=== PATIENT | female | born 1955 | race African-American/Black ===

== ENCOUNTER 2018-09-11 01:05 | Inpatient (IN) | payer MEDICARE, MEDICAID ==
[~2018-09-11] VITALS: Ht 165.1 cm; Wt 100.2 kg
[2018-09-11] MEDS ORDERED: NITROGLYCERIN OINT 1GM/INCH UDPKT TD ONE (03:00)
[2018-09-11] MEDS ORDERED: ASPIRIN 81MG TABLET PO ONE (03:00)
[2018-09-11 04:09] LABS: BASOPHILS % 0.9 % (0.0-2.0); EOSINOPHILS % 2.2 % (0.0-5.0); HEMATOCRIT. 38.1 % (36.0-48.0); HEMOGLOBIN. 12.6 g/dL (12.0-16.0); LYMPHOCYTES % 29.1 % (20.0-50.0); MEAN CORPUSCULAR HEMOGLOBIN 26.3 pg (28.0-32.0); MEAN CORPUSCULAR VOLUME 79.6 fL (81.0-99.0); MEAN PLATELET VOLUME 10.8 fl (7.4-10.4); MONOCYTES % 7.4 % (2.0-8.0); NEUTROPHILS % 60.4 % (40.0-76.0); PLATELET 173 x1000/uL (130-400); RED BLOOD CELL COUNT 4.78 mill/uL (4.2-5.4); RED CELL DISTRIBUTION WIDTH 14.3 % (11.6-14.6)
[2018-09-11 04:24] LABS: CHLORIDE 105 mEq/L (98-107)
[2018-09-11] MEDS ORDERED: DIPHENHYDRAMINE 50MG/ML VIAL IV PRN (07:00)
[2018-09-11] MEDS ORDERED: IPRATROPIUM/ALBUTEROL 0.5-3(2.5)MG/3ML NEB INH PRN (07:00)
[2018-09-11] MEDS ORDERED: CLONIDINE 0.1MG TABLET PO PRN (07:00)
[2018-09-11] MEDS ORDERED: GUAIFENESIN 200MG/10ML SUGAR FREE UDC PO PRN (07:00)
[2018-09-11] MEDS ORDERED: NA PHOS,M-B/NA PHOS,DI-BA ENEMA 118ML PR PRN (07:00)
[2018-09-11] MEDS ORDERED: DOCUSATE SODIUM 100MG CAPSULE PO PRN (07:00)
[2018-09-11] MEDS ORDERED: MAGNESIUM/ALUMINUM HYDROXIDE/SIMETHICONE 30ML UDC PO PRN (07:00)
[2018-09-11] MEDS ORDERED: LORAZEPAM 2MG/ML CPJ IV PRN (07:00)
[2018-09-11] MEDS ORDERED: ACETAMINOPHEN 325MG TABLET PO PRN (07:00)
[2018-09-11] MEDS ORDERED: ONDANSETRON HCL 4MG/2ML INJ IV PRN (07:00)
[2018-09-11] MEDS ORDERED: PANTOPRAZOLE SODIUM 40 MG/VIAL IV SCH (09:00)
[2018-09-11] MEDS ORDERED: ASPIRIN 81MG EC TABLET PO SCH (09:00)
[2018-09-11] MEDS ORDERED: DEXTROSE 50% WATER 50ML SYRINGE IV PRN (12:00)
[2018-09-11] MEDS: INSULIN LISPRO (MEDIUM DOSE) 100 UNITS/ML SUBCUT SCH ×2 (12:30→21:55)
[2018-09-11 19:48] LABS: CREATINE KINASE 61 IU/L (26-192)
[2018-09-11 19:49] LABS: CREATINE KINASE MB FRACTION < 1.0 ng/mL (0.5-3.6)
[2018-09-11] MEDS ORDERED: HYDROCODONE/ACETAMINOPHEN 10/325MG TABLET PO PRN (21:17)
[2018-09-11] MEDS ORDERED: MORPHINE SULFATE 4 MG/ML CPJ (NOT FOR IM USE) IV PRN (21:18)
[2018-09-11 21:30] VITALS: BP 130/70
[2018-09-11] MEDS: PANTOPRAZOLE SODIUM 40 MG/VIAL IV SCH (21:44)
[2018-09-11] MEDS: BLOOD SUGAR DIAGNOSTIC STRIP TEST SCH (21:46)
[2018-09-11 22:00] VITALS: BP 130/70
[2018-09-12] VITALS: BP 136/80
[2018-09-12] MEDS ORDERED: LATA7.5D OP (02:07)
[2018-09-12] MEDS ORDERED: ASPI-1158 MT (02:07)
[2018-09-12] MEDS ORDERED: GABA-531 MT (02:07)
[2018-09-12] MEDS ORDERED: DORZ10DR9 EACHEYE (02:07)
[2018-09-12] MEDS ORDERED: LISI-604 MT (02:07)
[2018-09-12] MEDS ORDERED: HYDR12.54 MT (02:07)
[2018-09-12] MEDS ORDERED: ROSU40TA21 MT (02:07)
[2018-09-12] MEDS ORDERED: DULO30CA51 MT (02:07)
[2018-09-12] MEDS ORDERED: CLOP75TA33 MT (02:07)
[2018-09-12] MEDS ORDERED: METO-396 MT (02:07)
[2018-09-12] MEDS ORDERED: INSU100I24 SQ (02:16)
[2018-09-12] MEDS ORDERED: INSU100C6 SQ (02:16)
[2018-09-12] MEDS ORDERED: DICL100G31 TP (02:17)
[2018-09-12 04:00] VITALS: BP 136/76
[2018-09-12] MEDS: BLOOD SUGAR DIAGNOSTIC STRIP TEST SCH ×2 (05:53→11:31)
[2018-09-12] MEDS: INSULIN LISPRO (MEDIUM DOSE) 100 UNITS/ML SUBCUT SCH ×2 (06:17→11:38)
[2018-09-12 08:00] VITALS: BP 135/51
[2018-09-12] MEDS: PANTOPRAZOLE SODIUM 40 MG/VIAL IV SCH (08:34)
[2018-09-12] MEDS ORDERED: ASPIRIN 81MG EC TABLET PO SCH (09:00)
[2018-09-12] MEDS ORDERED: ENOXAPARIN 30MG/0.3ML SYR SUBCUT SCH (09:00)
[2018-09-12 09:47] LABS: BASOPHILS % 0.6 % (0.0-2.0); EOSINOPHILS % 2.4 % (0.0-5.0); HEMATOCRIT. 37.9 % (36.0-48.0); HEMOGLOBIN. 12.4 g/dL (12.0-16.0); LYMPHOCYTES % 35.2 % (20.0-50.0); MEAN CORPUSCULAR HEMOGLOBIN 26.1 pg (28.0-32.0); MEAN CORPUSCULAR VOLUME 79.7 fL (81.0-99.0); MEAN PLATELET VOLUME 10.8 fl (7.4-10.4); MONOCYTES % 6.9 % (2.0-8.0); NEUTROPHILS % 54.9 % (40.0-76.0); PLATELET 172 x1000/uL (130-400); RED BLOOD CELL COUNT 4.76 mill/uL (4.2-5.4); RED CELL DISTRIBUTION WIDTH 14.3 % (11.6-14.6)
[2018-09-12 10:39] LABS: CHLORIDE 108 mEq/L (98-107)
[2018-09-12 10:54] LABS: CREATINE KINASE MB FRACTION < 1.0 ng/mL (0.5-3.6)
[2018-09-12 10:55] LABS: T4 FREE 1.02 ng/dL (0.76-1.46)
[2018-09-12 10:57] LABS: CREATINE KINASE 61 IU/L (26-192); LDL CHOLESTEROL 64 mg/dL (5-100)
[2018-09-12 10:59] LABS: HDL CHOLESTEROL 40 mg/dL (40-59)
[2018-09-12 12:00] VITALS: BP 110/66
[2018-09-12 15:32] VITALS: BP 110/66
== END 2018-09-12 17:15 | disposition home or self-care (01) | DRG 206 ==
LOC: ER 03:23 → 5WST 05:15 → ENRESERV 19:46 → 5WST 21:20
PROVIDERS: ADMIT Internal Medicine; ATTEND Internal Medicine
DX: M94.0 Chondrocostal junction syndrome [Tietze] (principal); E11.9 Type 2 diabetes mellitus without complications; E66.9 Obesity, unspecified; E78.00 Pure hypercholesterolemia, unspecified; I10 Essential (primary) hypertension; I25.10 Atherosclerotic heart disease of native coronary artery without angina pectoris; K21.9 Gastro-esophageal reflux disease without esophagitis; Z95.5 Presence of coronary angioplasty implant and graft; I25.2 Old myocardial infarction; Z98.51 Tubal ligation status
CPT/HCPCS: 36415; 71045; 80061; 82550; 82553; 82962; 83880; 84439; 84443; 84484; 85379; 93005; 99285; C9113; J1650; J1815

== ENCOUNTER 2021-03-08 11:51 | Emergency (ER) | payer MEDICARE, MEDICAID ==
[~2021-03-08] VITALS: Ht 165.1 cm; Wt 115.0 kg
[~2021-03-08 11:51] MED LIST: ASPI-1406 MT; CLOP75TA33 MT; DORZ10DR9 EACHEYE; DULO30CA52 MT; GABA-532 MT; HYDR12.54 MT; INSU100C6 SQ; INSU100I24 SQ; LATA7.5D OP; LISI20TA31 MT; METO-396 MT; ROSU40TA21 MT
[2021-03-08] MEDS ORDERED: ONDANSETRON HCL 4MG/2ML INJ IV STA (12:34)
[2021-03-08] MEDS ORDERED: MORPHINE SULFATE 4 MG/ML CPJ (NOT FOR IM USE) IV STA (12:34)
[2021-03-08] MEDS ORDERED: SODIUM CHLORIDE 0.9% 1,000 ML IV ONE (12:45)
[2021-03-08 13:10] LABS: BASOPHILS % 0.5 % (0.0-2.0); EOSINOPHILS % 0.8 % (0.0-5.0); HEMATOCRIT. 39.8 % (36.0-48.0); HEMOGLOBIN. 13.3 g/dL (12.0-16.0); MEAN CORPUSCULAR HEMOGLOBIN 27.1 pg (28.0-32.0); MEAN CORPUSCULAR VOLUME 81.2 fL (81.0-99.0); MEAN PLATELET VOLUME 10.7 fl (7.4-10.4); MONOCYTES % 7.5 % (2.0-8.0); NEUTROPHILS % 67.2 % (40.0-76.0); PLATELET 209 x1000/uL (130-400); RED CELL DISTRIBUTION WIDTH 14.8 % (11.6-14.6)
[2021-03-08 13:19] LABS: CHLORIDE 106 mEq/L (98-107); PROTHROMBIN TIME 10.9 sec (9.6-11.0)
[2021-03-08 13:24] LABS: CLARITY URINE CLOUDY (CLEAR); COLOR URINE YELLOW (YELLOW); KETONES URINE 1+ (NEGATIVE); LEUKOCYTE ESTERASE URINE NEGATIVE (NEGATIVE); NITRITE URINE NEGATIVE (NEGATIVE); OCCULT BLOOD URINE NEGATIVE (NEGATIVE); PH URINE 5.5 (4.5-8.0); PROTEIN URINE TRACE (NEGATIVE); SPECIFIC GRAVITY URINE 1.025 (1.005-1.030)
[2021-03-08] MEDS ORDERED: ONDA4TAB5 MT (15:27)
[2021-03-08 15:58] VITALS: BP 120/78
== END 2021-03-08 15:59 | disposition home or self-care (01) ==
LOC: ER 11:51
DX: R11.10 Vomiting, unspecified (principal); E11.9 Type 2 diabetes mellitus without complications; I11.9 Hypertensive heart disease without heart failure; E78.00 Pure hypercholesterolemia, unspecified; Z79.4 Long term (current) use of insulin; Z98.51 Tubal ligation status; Z98.890 Other specified postprocedural states
CPT/HCPCS: 36415; 74176; 76705; 80053; 81003; 82010; 82962; 83690; 85025; 85610; 93005; 96374; 96375; 99285; J2270; J2405; J7030